=== PATIENT | female | born 1965 | race Two or more races ===

== ENCOUNTER 2025-04-29 18:29 | Emergency (ER) | payer BC, SELFPAY ==
--- OUTSIDE RECORDS SUMMARY | 2025-04-24 13:20 | XMS_ITS | Encounter Summary ---
Author Organization [facility] Address [address] [place] [address] Care Team Providers Care Environmental Services Tech Name Role Phone Linda Tinsley Primary Care Provider [phone] Reason for Visit * Reason Comments Follow Up FMLA Neck Pain Shoulder Pain Encounter Details Date Type Department Care Team (Late st Contact Info) Description 04/24/2025 1:20 PM EDT Office Visit [facility] [address] [place] [address] Linda Tinsley FNP [address] [place] [address] Social History Tobacco Use Types Packs/Day Years Used Date Smoking Tobacco: Former Cigarettes 0.3 10 0 08/22/1988 - 08/22/1998 Smokeless Tobacco: Never Tobacco Cessation:Counseling Given: Not Answered Alcohol Use Standard Drinks/Week Comments Not Currently 0 (1 standard drink = 0.6 oz pur e alcohol) Social Connections Answer Date Recorded Connectedness 0 04/27/2024 Financial Resource Strain Answer Date R ecorded Do you have trouble paying for medicines? 1 02/12/2025 Stress Answer Date Recorded Stress 0 10/14/2020 Physical Activity Answer Date Recorded Physical Activity 0 10/14/2020 Food Insecurity Answer Date Recorded Within the past 12 months, y ou worried that your food would run out before you got money to buy more. 1 02/12/2025 Transportation Needs Answer Date Record ed Do you have trouble getting transportation to medical appointments? 1 02/12/2025 Housing Stability Answer Date Recorded What is your living situation today? 1 02/12/2025 Safety and Environment Answer Date Mino rded Safety 0 01/29/2021 Utilities Answer Date Recorded Do you have trouble paying y our heating, water or electricity bill? 1 02/12/2025 Employment Answer Date Recorded Are you currently unemployed and looking for a j ob? 1 02/12/2025 Comments No Sex and Gender Information Value Date Recorded Sex Assigned at Female 01/29/2021 4:24 PM PDT Legal Sex Female 10:54 PM PST Gender Identity Female 10/24/2020 12:46 AM PST Sexual Orientation Straight 10/24/2020 12 :46 AM PST COVID-19 Exposure Response Date Recorded In the last 10 days, have yo u been in contact with someone who was confirmed or suspected to have Coronavirus/COVID-19? No / Unsure 04/24/2025 1:48 PM EDT documented as of this encounter Last Filed Vital Signs Vital Sign Reading Time Taken Comments Blood Pressure 123/84 04/24/2025 1:56 PM EDT Pulse 53 04/24/2025 1:56 PM EDT Temperature 36.7 C (98.1 F) 04/24/2025 1:56 PM EDT Respiratory Rate - - Oxygen Saturation 99% 04/24/2025 1:56 PM EDT Inhaled Oxygen Concentration - - Weight 92.1 kg (203 lb) 04/24/2025 1:56 PM EDT Height - - Body Mass Index 29.39 11/02/2023 2:31 PM EDT documented in this encounter Progress Notes * DANIELLE Roth - 04/29/2025 8:24 PM EDTAssociated Problem(s): Chronic pain of both shoulders She presents for FMLA form completion . Form completed: eff 04/23/25 to 05/23/25 pending Orthopedics' evaluation. She plans to self-submit this form (original completed copy returned to pt) . Continue with treatment plan per Orthopedic's recommendations * DANIELLE Roth - 04/24/2025 2:05 PM EDT [facility] Subjective Perla Pelaez is a 59 year old female here for Follow Up (FMLA), Neck Pain, and Shoulder Pain pre press manager assisted with translation for this visit. HPI: She presents for FMLA form completion #Bilateral shoulders pain, f/b [facility] at [facility]/Dr. Moreno Valencia, most recent appt 03/08/25, f/u next week . MRI of both shoulders completed on March 18 2025 (report not available for review) . Patient reports rotator cuff tear of both shoulders and anticipating right shoulder surgery this month pending repeat MRI that is scheduled for 04/25/25. Dr. Valencia notes 03/08/25 MEDICAL DECISION MAKING I have independently reviewed and interpreted all of images associated with her x-rays of her shoulders from an outside facility dated 12/31/2024, and they reveal no evidence of acute bony abnormality, fracture, or dislocation. The joint space is well-preserved and there is no evidence of advanced arthritis, or other bony abnormality. Most notable, on both shoulders, there is rounding on the underside of the acromion that raises concern for occult rotator cuff disease. ASSESSMENT & PLAN Ms. Pelaez is a 59 y.o.-old pyudu-soab-wljfnfkh woman with chronic bilateral shoulder pain and a clinical presentation that is concerning for bilateral degenerative supraspinatus tendon tearing. SHARED DECISION MAKING At today's visit, Ms. Pelaez and I have discussed the details of her x-ray. I am pleased to reportthat she has no evidence of advanced arthritis in her shoulders. Her physical examination reveals considerable weakness. Her weakness raises concern of her having bilateral degenerative rotator cuff tears which would explain her radiographic finding and her physical examination. She and I have discussed her options for treating her shoulder pain and disability. I agree that she may benefit from formal physical therapy and for this reason I have suggested that she may want towork with Weston Henning at [facility] in [place], [place]. Additionally, she is interested in understanding the pathoanatomy of her shoulders. For this reason, I have ordered MRIs of both shoulders. For her convenience, I have suggested getting the MRIs doneat the [facility] facility in [place], [place]. Once they are completed, I have asked her tolet me know so that we can review the images remotely. She understands that the imaging study will offer us some insight as to whether or not there is a structural abnormality in her shoulder, what is injured and what her options may be. I will also give her some time to begin formal physical therapy to see if her functional capacity is improved with conservative approach. Reviewed by Provider: Documentation Reviewed by Provider: Review of Systems Constitutional: Negative for chills, fatigue, fever and unexpected weight change. Respiratory: Negative for shortness of breath. Cardiovascular: Negative for chest pain, palpitations and leg swelling. Genitourinary: Negative for difficulty urinating and dysuria. Musculoskeletal: Positive for arthralgias. Negative for gait problem. Psychiatric/Behavioral: Negative for agitation and confusion. Current Outpatient Medications Medication Sig Dispense Refill naproxen (NAPROSYN) 500 mg tablet Take 1 Tablet by mouth 2 (two) times daily with a meal. 30 Tablet0 fluticasone propion-salmeteroL (AIRDUO RESPICLICK) 113-14 mcg/actuation aepb Inhale 1 Puff into thelungs 2 (two) times daily inhale 1 puff by inhalation route 2 times every day approximately 12 hours apart at the same time each day 1 Each 2 albuterol HFA (VENTOLIN HFA) 90 mcg/actuation inhaler Inhale 2 Puffs into the lungs every 4 (four) hours as needed for shortness of breath or wheezing 18 g 1 fluticasone propionate (FLONASE) 50 mcg/actuation nasal spray Place 2 Sprays in both nostrils once daily topiramate (TOPAMAX) 25 mg tablet TAKE 1 TABLET BY MOUTH X 1 WEEK THEN INCREASE TO TWICE A DAY carboxymethylcellulose-glycern (REFRESH OPTIVE) 1-0.9 % drpg As directed DULoxetine (CYMBALTA) [address] capsule Take 120 mg by mouth once daily TAKE 1 CAPSULE BY MOUTH EVERY DAY RESTASIS 0.05 % ophthalmic emulsion Place 1 Drop into both eyes 1 to 2 (one to two) times daily No current facility-administered medications for this visit. Objective BP 123/84 (Right Arm, Sitting, Large Adult) Pulse 53 Temp 98.1 ??F (36.7 ??C) Wt 203 lb (92.1kg) SpO2 99% BMI 29.39 kg/m?? OB Status Hysterectomy Smoking Status Former BSA 2.13 m?? Pain Sc 8/10 (Loc: Neck) Physical Exam Vitals reviewed. Constitutional: General: She is not in acute distress. Appearance: She is not ill-appearing or diaphoretic. Pulmonary: Effort: Pulmonary effort is normal. Musculoskeletal: General: No swelling or deformity. Neurological: Mental Status: She is alert and oriented to person, place, and time. Gait: Gait normal. Assessment and Plan 1. Chronic pain of both shoulders (Primary) Overview: #Bilateral shoulders pain, f/b [facility] at [facility]/Dr. Moreno Valencia, most recent appt 03/08/25, f/u next week . MRI of both shoulders completed on March 18 2025 (report not available for review) . Patient reports rotator cuff tear of both shoulders and anticipating right shoulder surgery this month pending repeat MRI that is scheduled for 04/25/25. Dr. Valencia notes 03/08/25 MEDICAL DECISION MAKING I have independently reviewed and interpreted all of images associated with her x-rays of her shoulders from an outside facility dated 12/31/2024, and they reveal no evidence of acute bony abnormality, fracture, or dislocation. The joint space is well-preserved and there is no evidence of advanced arthritis, or other bony abnormality. Most notable, on both shoulders, there is rounding on the underside of the acromion that raises concern for occult rotator cuff disease. ASSESSMENT & PLAN Ms. Pelaez is a 59 y.o.-old nxhph-vzua-kdibcfrq woman with chronic bilateral shoulder pain and a clinical presentation that is concerning for bilateral degenerative supraspinatus tendon tearing. SHARED DECISION MAKING At today's visit, Ms. Pelaez and I have discussed the details of her x-ray. I am pleased to reportthat she has no evidence of advanced arthritis in her shoulders. Her physical examination reveals considerable weakness. Her weakness raises concern of her having bilateral degenerative rotator cuff tears which would explain her radiographic finding and her physical examination. She and I have discussed her options for treating her shoulder pain and disability. I agree that she may benefit from formal physical therapy and for this reason I have suggested that she may want towork with Weston Henning at [facility] in [place], [place]. Additionally, she is interested in understanding the pathoanatomy of her shoulders. For this reason, I have ordered MRIs of both shoulders. For her convenience, I have suggested getting the MRIs doneat the [facility] in [place], [place]. Once they are completed, I have asked her tolet me know so that we can review the images remotely. She understands that the imaging study will offer us some insight as to whether or not there is a structural abnormality in her shoulder, what is injured and what her options may be. I will also give her some time to begin formal physical therapy to see if her functional capacity is improved with conservative approach. Assessment & Plan: She presents for FMLA form completion . Form completed: eff 04/23/25 to 05/23/25 pending Orthopedics' evaluation. She plans to self-submit this form (original completed copy returned to pt) . Continue with treatment plan per Orthopedic's recommendations Follow-up Instructions Check-out Note: Follow-up in 4 to 6 weeks, or sooner if needed documented in this encounter Plan of Treatment Not on file documented as of this encounter Goals Goal Patient Goal Type Associated Problems Recent Progress Patient-Stated? Author Learn coping skills to manage anxiety using mindfulness and progressive relaxation General On track( 024 3:04 PM PDT) No Ale Pastor LICSW documented as of this encounter Visit Diagnoses Diagnosis Chronic pain of both shoulders- Primary Pain in joint, shoulder region documented in this encounter Additional Health Concerns Assessment Noted Time PHQ-9 Depression Total Score: 13 025 9:49 AM PDT documented as of this encounter Care Teams Environmental Services Tech Relationship Specialty Start Date End Date Linda Tinsley FNP [address] [place] [phone] PCP - General 08/10/22 documented as of this encounter
[2025-04-29 19:17] VITALS: BP 123/66; PULSE 58; RESP 16; TEMP 35.9; O2SAT 99; BMI 21.5
--- NOTE | 2025-04-29 19:22 | ED.GENADULT ---
HPI - General Adult General Chief complaint: General Medical Stated complaint: blood in stool Time Seen by Provider: 04/29/25 23:10 Source: patient Mode of arrival: ambulatory Limitations: other (deafness, ASL) History of Present Illness ED Provider: Dr. Shani Hdez HPI narrative: 59 year old female with history of deafness, uses spanish medical interpreter presenting with dark stools ongoing for the last 3 days or so. Today, noted BRB on the toilet paper and became concerned. Went to the who told her to come to the ED for evaluation. Denies assocaited abdominal pain. Has been taking naproxen every day for the last several weeks for shoulder pain. She is due to have surgery next week for rotator cuff injury. Describes formed, but dark colored stools. Almost black. No bright red blood until today. She does not take iron supplements or bismuth subsalicylate. Denies nausea or vomiting. No urinary complaints. No anticoagulant use. Related Data Allergies Allergy/AdvReac Type Severity Reaction Status Date / Time No Known Allergies Allergy Verified 04/29/25 19:32 Review of Systems Review of Systems: as per HPI, full review of systems performed and negative but for the above mentioned pertinent positives and negatives. [facility] Social History Social History Smoked in Last 30 Days: No Use of substances other than those prescribed or required for medical reasons: No Advance Directives: No Advance Directives Information Provided: Yes Do you have a plan to hurt others: No Plan Patient : No Physical Exam ED Exam Exam: GENERAL: Well-Appearing, conversant, no acute distress. SKIN: Normal skin color for ethnicity, warm, dry, no rashes noted. HEENT:? Normocephalic, atraumatic, no stridor, posterior oropharynx nonerythematous, dentition intact, EOMI. NECK: Soft, supple, full ROM, midline structures nontender, no step-offs, no deformities, no lymphadenopathy. CHEST: Heart regular rate and rhythm, no murmurs, symmetric chest rise and fall. PULMONARY: Clear to auscultation bilaterally, no labored breathing, no wheezes/rhales/rhonchi. ABDOMINAL: Soft, nondistended, nontender, quiet bowel sounds in all quadrants. : Deferred. MUSCULOSKELETAL: Normal tone, full range of motion, no deformities, no peripheral edema. NEURO: Alert and oriented x3, CN II through XII intact, equal strength and sensation bilateral upper and lower extremities, no focal neurologic deficits.? PSYCHIATRIC: Normal affect, fluid speech, good eye contact and appropriate demeanor. Vital Signs: Vital Signs - 24 hr 04/29/25 19:17 Temperature 96.6 F L Pulse Rate 58 Respiratory Rate 16 Blood Pressure 123/66 Pulse Oximetry 99 Oxygen Delivery Method Room Air BMI result Body Mass Index 21.5 Course Course Course Narrative: Rapid medical examination performed in triage by Carmen Allen PA-C. Patient is a 59 year old assigned female at presenting to the emergency department with blood in her stool. Patient states that she is taking naproxen for shoulder pain. Patient has had some dark stools. Detailed physical exam and review of systems are deferred to the test car driver. Labs ordered. Patient placed back in the waiting room pending room availability and results. Medical Decision Making Medical Decision Making [facility] Narrative: Patient presents today with a chief complaint of possible GI bleed. Differential diagnosis includes rectal bleeding from sources such as a fissure, hemorrhoid, lower GI bleed, diverticulitis, upper GI bleeding, peptic ulcer disease, perforation, esophageal bleed, among many others. Broad-based work-up was initiated based on the patient's presentation. Bloodwork shows no significant anemia. No abdominal pain on exam or history. Suspect PUD or gastritis due to NSAID use. Extensive discussion about avoid NSAIDs, PPI use and follow up with PCP and her orthopedic surgeon who is repairing her rotator cuff injury next week. Using shared decision making, plan for discharge home to follow-up with primary care and/or specialist.? Patient understands and agrees with plan for discharge.? Discharged home in stable condition. Differential Diagnosis Differential Diagnoses: The differential diagnosis associated with the presentation includes (as above) Admission/Observation Consideration of admission/observation: Escalation of care including admission/observation considered Lab Data [facility] Lab Attestation statement: I reviewed the patient's lab results. 04/29/25 19:36 04/29/25 19:36 Labs: Lab Results 04/29/25 Range/Units 19:36 WBC 7.4 (4.8-10.8) X10*3/uL RBC 4.61 (4.20-5.50) X10*6/uL Hgb 13.4 (12.0-16.0) g/dl Hct 38.8 (37.0-47.0) % MCV 84.2 (80.0-98.0) fL MCH 29.1 (27.0-33.0) pg MCHC 34.5 (31.0-35.0) g/dl RDW 12.8 (11.0-16.0) % Plt Count 252 (160-400) X10*3/uL MPV 9.2 L (9.4-12.3) fL Immature Gran % (Auto) 0.3 (0.0-0.4) % Neut % (Auto) 65.9 (45-73) % Lymph % (Auto) 23.5 (20-40) % [place] % (Auto) 7.6 (2-11) % Eos % (Auto) 2.3 (0-4) % Baso % (Auto) 0.4 (0-2) % Lymph # (Auto) 1.7 (1.2-4.9) X10*3/uL [place] # (Auto) 0.6 (0.1-1.2) X10*3/uL Eos # (Auto) 0.2 (0.0-0.4) X10*3/uL Baso # (Auto) 0.0 (0.0-0.2) X10*3/uL Abs Immat Gran (auto) 0.02 (0.00-0.03) X10*3/uL Absolute Neuts (auto) 4.8 (2.0-8.3) x10*3/uL Absolute Nucleated RBC 0.000 (0.0-0.012) X10*3/uL Nucleated RBC % (auto) 0.0 (0.0-0.2) /100WBC PT 10.9 (10.9-12.4) SEC INR 1.0 (0.9-1.1) Sodium 145 (135-145) mmol/L Potassium 4.1 (3.3-5.1) mmol/L Chloride 113 H (96-108) mmol/L Carbon Dioxide 23 (22-29) mmol/L Anion Gap 13 (12-20) BUN 15 (9-16) mg/dL Creatinine 0.89 (0.5-1.4) mg/dL Estim Creat Clear Calc 74.0 Estimated GFR > 60 Random Glucose 99 (60-115) mg/dL Calcium 9.2 (8.4-10.2) mg/dL Total Bilirubin 0.3 (0.0-1.0) mg/dL AST 30 (5-31) U/L ALT 36 H (0-31) U/L Alkaline Phosphatase 93 (39-117) U/L Total Protein 6.9 (6.5-8.0) g/dL Albumin 4.5 (3.5-5.0) g/dL Prescription Management I considered prescription management with: Pain Medication and Other (PPI) Chronic Conditions Patient?s care impacted by: Other (osteoarthritis) Social Determinants Patient?s care significantly limited by Social Determinants of Health including: Other Social Determinant of Health Discharge Plan Discharge Clinical Impression: Acute upper GI bleeding, GI bleed due to NSAIDs Patient Disposition: Home, Self-Care Instructions: Gastrointestinal Bleeding (ED) Additional Instructions: Avoid NSAIDs until you speak with your primary care doctor. You can attempt to use antacids such as omeprazole, famotidine or even just Tums to help with abdominal pain and acid production which can worsen bleeding. Return to the ER with any new or worsening symptoms including: Worsening abdominal pain, fevers greater than 100?, worsening bleeding, passing out, chest pain, difficulty breathing, any new symptom that concerns you. Call 911 with any medical emergency. Interventions: ED Discharge Assessment Last Done: 04/30/25 00:55 Discharge Date/Time: 04/30/25 00:52 Print Language: Libyan Sign Language
[2025-04-29 19:40] LABS: MANUAL DIFF FLAG NO
[2025-04-29 19:41] LABS: Hematocrit 38.8 % (37.0-47.0); Hemoglobin 13.4 g/dl (12.0-16.0); Imm Gran Abs Auto 0.02 X10*3/uL (0.00-0.03); Imm Gran Pct Auto 0.3 % (0.0-0.4); Lymphocytes Absolute Auto 1.7 X10*3/uL (1.2-4.9); Mean Corpuscular HGB Conc 34.5 g/dl (31.0-35.0); Mean Corpuscular Hemoglobin 29.1 pg (27.0-33.0); Mean Corpuscular Volume 84.2 fL (80.0-98.0); NRBC Abs Auto 0.000 X10*3/uL (0.0-0.012); NRBC Pct Auto 0.0 /100WBC (0.0-0.2); Platelet Count 252 X10*3/uL (160-400); Red Blood Count 4.61 X10*6/uL (4.20-5.50); White Blood Count 7.4 X10*3/uL (4.8-10.8)
[2025-04-29 19:46] LABS: INTERNATIONAL NORM RATIO 1.0 (0.9-1.1); Prothrombin Time 10.9 SEC (10.9-12.4)
[2025-04-29 19:56] LABS: Alanine Aminotransferase 36 U/L (0-31); Albumin Level 4.5 g/dL (3.5-5.0); Alkaline Phosphatase 93 U/L (39-117); Anion Gap 13 (12-20); Aspartate Amino Transferase 30 U/L (5-31); Blood Urea Nitrogen 15 mg/dL (9-16); Calcium 9.2 mg/dL (8.4-10.2); Carbon Dioxide 23 mmol/L (22-29); Chloride 113 mmol/L (96-108); Creatinine Clr Calc Pharmacy 74.0; Estimated Glomerular Filt Rate > 60; Potassium 4.1 mmol/L (3.3-5.1); Sodium 145 mmol/L (135-145); Total Protein 6.9 g/dL (6.5-8.0)
--- NOTE | 2025-04-29 23:52 | PC.NURSE ---
RN and registration attempting to secure field observer for communication purposes with the patient. Due to unsuccessful attempts and prolonged wait time this RN called the deaf/hearing impaired emergency number to request an oncall field observer to assist with the patient's visit. MD Hdez aware
--- OUTSIDE RECORDS SUMMARY | 2025-04-30 00:23 | XMS_ITS | Clinical Summary ---
Author Organization [facility] Address [address] [place] [phone] Phone Care Team Providers Care Commercial Maintenance Technician Name Role Phone Kamilla Romero NP Primary Care Provide r Allergies Active Allergy Reactions Criticality Noted Date Comments Nitrofurantoin Monohyd/M-Cryst Unknown 10/22 Medications gabapentin (NEURONTIN) 300 MG capsule Take 300 mg by mouth 3 (three) times a day. Active DULoxetine (CYMBALTA) 60 MG capsule Take 60 mg by mouth daily. Active baclofen (LIORESAL) 10 MG tablet Take 10 mg by mouth 3 (three) times a day. Active fluticasone-isai meterol (ADVAIR DISKUS) 100-50 mcg/dose DISKUS Inhale 100 mcg/actuation of fluticasone into the lungs 2 (two) times a day. Active Active Problems Problem Noted Date Diagnosed Date Allergic rhinitis 10/30/2013 Overview (10/11/2014): Allergic rhinitis Dysfunction of eustachian tube 10/30/2013 Overview (10/11/2014): Dysfunction of eustachian tube Family History Medical History Relation Comments Heart disease Father Alzheimer's disease Maternal Grandmother Diabetes mellitus Maternal Grandmother Heart disease Mother Osteoarthritis Mother Hypothyroidism Sister Anesthesia problems Neg Hx Bleeding Disorder Neg Hx Relation Status Comments Father Maternal Grandmother Mother Sister Social History Tobacco Use Types Packs/Day Years Used Date Smoking Tobacco: Never Smokeless Tobacco: Never Alcohol Use Standard Drinks/Week Comments Yes 0 (1 standard drink = 0.6 oz pur e alcohol) Education Answer Date Recorded Are you interested in more education? Not on mirian e 12/17/2022 Are you concerned about learning? Not on file 12/17/2022 No 12/17/2022 No 12/17/2022 Digital Access Answer Date Recorded No 01/17/2023 No 01/17/2023 No 01/17/2023 Reliable internet access at home? Not on file 01/17/2023 Device with a working camera? Not on file Comments Unknown Sex and Gender Information Value Date Recorded Sex Assigned at Not on file Legal Sex Female 2:21 PM EST Gender Identity Not on file Sexual Orientation Not on file Last Filed Vital Signs Vital Sign Reading Time Taken Comments Blood Pressure 100/78 07/01/2015 4:49 PM EST Pulse 60 07/01/2015 4:49 PM EST Temperature 36.7 C (98.1 F) 09/20/2014 11:50 AM EST Respiratory Rate - - Oxygen Saturation 98% 09/20/2014 11:50 AM EST Inhaled Oxygen Concentration - - Weight 92.1 kg (203 lb) 06/26/2020 9:10 AM EST Height 175.3 cm (5' 9 ) 06/26/2020 9:10 AM EST Body Mass Index 29.98 06/26/2020 9:10 AM EST Plan of Treatment Health Maintenance Due Date Last Done Comments LIPID PANEL 1966 DEPRESSION SCREENING 1978 HEPATITIS C SCREENING 1984 HIV ONE-TIME SCREENING (18-6 5 YEARS) 1984 PAP SMEAR 1987 SMOKING STATUS SCREENING (On ce After 26 Yrs) 1992 MAMMOGRAM 2006 COLOGUARD 2011 COLONOSCOPY 2011 COLORECTAL CANCER SCREENING 2011 FIT TEST 2011 FOBT 2011 SIGMOIDOSCOPY 2011 VIRTUAL COLONOSCOPY 2011 PNEUMOCOCCAL VACCINES (50+ years) (1 of 1 - PCV) 2016 ZOSTER VACCINES (1 of 2) 2016 Adult Td,Tdap Booster 02/26/2025 02/26/2015 INFLUENZA VACCINE (#1) 2025 COVID-19 VACCINE (3 - 2024-2 6 season) 2025 10/11/2020, 09/20/2020 HEPATITIS A VACCINES Aged Out No long er eligible based on patient's age to complete this topic HIB VACCINES Aged Out No longer eligi ble based on patient's age to complete this topic MENINGOCOCCAL VACCINES (ACWY) Aged Out No longer eligible based on patient's age to complete this topic MENINGOCOCCAL VACCINES (B) Aged Out N o longer eligible based on patient's age to complete this topic Medical Devices Not on file Insurance [facility] ACO [facility]CO [phone] [place] [phone] [place] [phone] [place] [address] ACO Care Teams Commercial Maintenance Technician Relationship Specialty Start Date End [place] [address] PCP - General Family Medicine 07/18/18 Additional Source Comments The information contained in this document represents components of the legal health record. It is not the complete legal health record.[facility]
--- OUTSIDE RECORDS SUMMARY | 2025-04-30 00:23 | XMS_ITS | Clinical Summary ---
Author Organization [facility] Address [address] [place] [address] Care Team Providers Care Compliance Review Officer Name Role Phone Linda Tinsley MICROFILM CLERK Primary Care Provider [phone] Source Comments PLEASE NOTE, if this patient is a minor, it may be UNLAWFUL to discuss sensitive information that is contained in these records (such as FAMILY PLANNING, MENTAL HEALTH or SUBSTANCE ABUSE) with the minor patient's parent or other person without the patient's specific authorization.[facility] Allergies Active Allergy Reactions Criticality Noted Date Comments Macrolide Antibiotics Diarrhea Low 11/09/2018 Nitrofurantoin High 03/07/2016 Reaction: Abdominal Pain Nitrofurantoin Macrocrystalline High 03/07/2016 Reaction: Abdominal Pain Medications RESTASIS 0.05 % ophthalmic emulsion Place 1 Drop into both eyes 1 to 2 (one to two) times daily 12/11/19 21 Active DULoxetine (CYMBALTA) [address] capsule Take 120 mg by mouth once daily TAKE 1 CAPSULE BY MOUTH EVERY DAY 10/16/19 21 Active carboxymethylcel lulose-glycern (REFRESH OPTIVE) 1-0.9 % drpg As directed Activ e topiramate (TOPAMAX) 25 mg tablet TAKE 1 TABLET BY MOUTH X 1 WEEK THEN INCREASE TO TWICE A DAY 04/07/20 21 Active fluticasone propionate (FLONASE) 50 mcg/actuation nasal spray Place 2 Sprays in both nostrils once daily Active albuterol HFA (VENTOLIN HFA) 90 mcg/actuation inhalerIndicatio ns:Influenza A,Moderate persistent asthma with acute exacerbation ([facility]) Inhale 2 Puffs into the lungs every 4 (four) hours as needed for shortness of breath or wheezing 18 g 1 10/17/19 24 Active fluticasone propion-salmeter oL (AIRDUO RESPICLICK) 113-14 mcg/actuation aepbIndications: Moderate persistent asthma, unspecified whether complicated ([facility]) Inhale 1 Puff into the lungs 2 (two) times daily inhale 1 puff by inhalation route 2 times every day approximately 12 hours apart at the same time each day 1 Each 2 03/28/20 24 Active naproxen (NAPROSYN) 500 mg tablet Take 1 Tablet by mouth 2 (two) times daily with a meal. 30 Tablet 04/23/20 25 Active celecoxib (CELEBREX) 200 mg capsule 01/15/20 21 025 Discontin ued(Thera py completed /Not needed) Active Problems Problem Noted Date Diagnosed Date Chronic pain of both shoulders 04/23/2025 Overview (04/29/2025): #Bilateral shoulders pain, f/b [facility] at [facility]/Dr. Moreno Valencia, most recent appt 03/08/25, f/u [...] PLAN Ms. Pelaez is a 59 y.o.-old rkpor-oawd-jvslauxt woman with chronic bilateral shoulder pain and a clinical presentation that is concerning for bilateral degenerative supraspinatus tendon tearing. SHARED DECISION MAKING At today's visit, Ms. Pelaez and I have discussed the details of her x-ray. I am pleased to report that she has no evidence of advanced arthritis [...] I have suggested that she may want to work with Weston Henning at [facility] in [place], [place]. Additionally, she is interested in understanding the pathoanatomy of her shoulders. For this reason, I have ordered MRIs of both shoulders. For her convenience, I have suggested getting the MRIs done at the [facility] in [place], [place]. Once they are completed, I have asked her to let me know so that we can review [...] is improved with conservative approach. Assessment & Plan (04/29/2025 8:24 PM EDT): She presents for FMLA form completion . Form completed: eff 04/23/25 to 05/23/25 pending Orthopedics' evaluation. She plans to self-submit this form (original completed copy returned to pt) . Continue with treatment plan per Orthopedic's recommendations Complex tear of lateral meni scus of right knee as current injury 05/08/2021 Overview (11/03/2021): 05/08/21- Most recent Xray - No fracture. Mild lateral patellar tilt. The joint spaces are preserved. Tiny marginal osteophytes in the medial tibiofemoral compartment and patellofemoral compartment. Enthesopathic change of the tibial tuberosity. Moderate effusion. Patient given RX for physical Therapy , however has not started yet due to language barrier Will try and obtain MRI for soft tissue pathology - patient encouraged to start PT 09/2021 [facility] MRI w/o contrast: medial and lateral meniscal tearing and mild degen cartilage changes Reactive disorder 05/08/2021 Overview (05/08/2021): Patient appears to be having marked elevation of anxiety as well as depression (labile crying during exam) Patient denies any suicidal ideationicidal Or homicidal ideation at this time At this time will start CBT with Patient to continue with Cymbalta 120mg (titrated up recently by outside provider), ?may need additional agents ?may need to assess after CBT is initiated Tinea unguium 02/24/2021 Overview (05/08/2021): 02/24/21 R grt toe, 6mm to 4mm discolouration, thickening, +debris under d1/d4/d5 nails. Has tried mult OTC creams, and from [employer], not sure of names Would like to proceed to pill form - understands 3mo course, and risk of liver stress 02/26/21 review: CMP WNL - ok to start terbinafine. To recheck in 1 mo, then ?continue meds. 05/08/21 - slight improvement - will resume course for 3rd month - will trend LFTs Preventative health care 01/29/2021 Overview (11/12/2023): . Mammo - no family hx, last was ~20 years ago, placed referral, pt to schedule. . Pap test - usually - hysterectomy in 2008 adenomyosis . CRC screening - Previous FIT test in 2020 was negative. Discussed, pt agrees to referral for cscope. . Hep C and HIV screenings: ordered. . Imm: Due for flu, PCV, covid booster => indications/r/b/SEs discussed with patient, pt declined all vaccines at this visit. Assessment & Plan (11/12/2023 4:50 PM EDT): . Discussed lifestyle modifications: healthy diet and exercise regularly. . Reviewed routine eye exam and dental cleaning every 6 mos Primary osteoarthritis involving multiple joints 12/18/2020 Overview (12/18/2020): 09/2020 following [facility] rheum Fitz, on meloxicam Fibromyalgia 11/19/2018 Overview (11/03/2021): Long standing well compensated fibromyalgia. Curiously she has been managed with primarily adjunct and centrally acting pain medications. (gabapentin and cymbalta as well as muscle relaxers.) Uses CBD as well which is modestly helpful. Addition of meloxicam was useful in mitigating the pain. Suggesting that there is a clear OA and degenerative component. Unfortunately this suggests that the issues will likely only worsen slowly over time. I urged her to try and take a higher 15mg dose and see if she will get a dose effect. Thus far she has not opted for this option. 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 It simply may be unrealistic to expect her to change significantly from the current trajectory even if that is largely a flat line. This does not fully take into account the possibility of future medications or treatment options that are not ready yet. Last Assessment & Plan: We discussed the side effect of what was perceived to be meloxicam(dry mouth). I suspect that this was not from the NSAID. Nonetheless we discussed trying an alternative, in this case the naprosyn which will have to be taken BID. We shall also provide a procholinergic medication which could counteract some of the xerostomia symptoms. Given the limitation of communicating with the wheel borer we will loop back in a few weeks with a televisit. CALL THE [phone] Language barrier affecting health care 9 Congenital deafness 03/07/2016 Assessment & Plan (02/12/2025 4:31 PM EDT): She has a 9 month old dog/animal support whom will be trained to assist her with environmental sound for safety awareness. Letter of accommodation for [facility] provided per her request Cervico-occipital neuralgia of right side 2014 Overview (11/12/2023): DANIELLE Mckinney-C12/03/2022 : F/b [facility] - sees Q3-4mo Brain MRI 02/2021 - no significant abnormalities Preventative medications: cymbalta 120mg daily + topiramate 50mg BID Abortive medications: aleve nikolai Assessment & Plan (11/12/2023 3:56 PM EDT): Continue with treatment plan per pain clinic at [facility] and continue to follow up per their recommendations. Assessment & Plan (09/21/2023 11:36 PM EST): F/b pain clinic at [facility]/ Dr. Vargas, pt requesting re-referral (most recent visit was Fall 2022 per pt). Allergic rhinitis 10/30/2013 Overview (12/18/2020): Allergic rhinitis Chronic low back pain Asthma Resolved Problems Problem Noted Date Diagnosed Date Resolved Date Sore throat 10/17/2023 11/16/2023 Dry skin 02/24/2021 11/03/2021 Bilateral dry eyes 09/17/2019 Overview (12/18/2020): Last Assessment & Plan: Still with burning but overall, improved since starting Restasis Continue with Restasis 1gtt BID both eyes and artificial tears as needed both eyes during the day Follow up 6 months Dysfunction of eustachian tube 10/30/2013 11/03/2021 Overview (12/18/2020): Dysfunction of eustachian tube Encounters Date Type Department Care Team Description 04/24/2025 1:20 PM EDT Office Visit [facility] Primary Care [address] [place] [phone] Linda Tinsley FNP 04/24/2025 Travel 04/23/2025 9:30 AM EDT Office Visit [facility] Primary Care [address] [place] [phone] Robyn Shaw FNP-C 04/23/2025 Travel 04/22/2025 Travel 02/12/2025 2:30 PM EDT Office Visit [facility] Primary Care [address] [place] [phone] Linda Tinsley FNP from Last 3 Months Immunizations Immunization Administration Dates Next Due PFIZER COVID VACCINE, PURPLE CAP, 12+ 10/11/2020 ,09/20/2020 TDAP 02/24/2021 Family History Medical History Relation Name Comments Allergies Brother Cardiovascular disease Father Heart attack Father Parkinson's disease Maternal Grandfather Diabetes Mellitus II Maternal Grandmother Stroke Mother Cause of Cardiovascular disease Other 1 Family h/o JEAN -father Stroke Other 2 Family h/o JEAN 10/31/2015 - mother Relation Name Status Comments Brother Father Maternal Grandfather Maternal Grandmother Mother (Age 76) Other 1 Family h/o Other 2 Family h/o Social History Tobacco Use Types Packs/Day Years [...] No / Unsure 04/24/2025 1:48 PM EDT Last Filed Vital Signs Vital Sign Reading Time Taken Comments Blood Pressure 123/84 04/24/2025 1:56 PM EDT Pulse 53 04/24/2025 1:56 PM EDT Temperature 36.7 C (98.1 F) 04/24/2025 1:56 PM EDT Respiratory Rate 18 02/12/2025 2:27 PM EDT Oxygen Saturation 99% 04/24/2025 1:56 PM EDT Inhaled Oxygen Concentration - - Weight 92.1 kg (203 lb) 04/24/2025 1:56 PM EDT Height 177 cm (5' 9.69 ) 11/02/2023 2:31 PM EDT Body Mass Index 29.39 11/02/2023 2:31 PM EDT Plan of Treatment Health Maintenance Due Date Last Done Comments Imm-Hepatitis B (1 of 3 - 19+ 3-dose series) 1985 Imm-Pneumococcal 50+ (1 of 2 - PCV) 1985 Breast Cancer Screening (Mammogram) 2006 CT Colonography 2011 Colonoscopy 2011 Fecal DNA 2011 Flexible Sigmoidoscopy 2011 Colorectal Cancer Screening 02/26/2022 FIT/gFOBT 02/26/2022 02/26/2021 Annual Wellness (Adult): Indicated (All Coverage) 11/01/2024 11/02/2023, 01/29/2021 Qtt-GCVMA-51 ( season) 2025 10/11/2020, 09/20/2020 Depression Monitoring 07/23/2025 04/23/2025 , 02/12/2025, 11/02/2023, Additional history exists Imm-Influenza (#1) 2026 Postponed from 04/22/2025 (Patient postponement) Anxiety Screening 04/23/2026 04/23/2025 Hypertension Screening (#1) 04/24/2026 Tobacco Screening 04/24/2026 04/24/2025 Imm-Zoster, Recombinant (1 of 2) 2026 Postponed from 2016 (Not appropriate at this time) Diabetes Screening 11/01/2026 11/02/2023, 0 11/02/2023, 09/29/2021, Additional history exists Lipid Screening 11/01/2028 11/02/2023, 02/15/2019 Imm-DTaP/Tdap/Td (2 - Td or Tdap) 02/24/2031 02/24/2021 HIV Screening Completed 11/02/2023, 07/07/2022 Hepatitis C Screening Completed 11/02/2023 Alcohol and Drug Screen Completed 04/23/20, 02/12/2025, 03/28/2024, Additional history exists Goals Goal Patient Goal Type Associated Problems Recent Progress Patient-Stated? Author Learn coping skills to manage anxiety using mindfulness and progressive relaxation General On track( 024 3:04 PM PDT) No Ale Pastor, MELANIE Procedures Procedure Name Priority Date/Time Associated Diagnosis Comments OTHER ORDERS SCANNED DOCUMENT 04/23/2025 3:00 AM EDT REFERRAL SCANNED DOCUMENT 02/05/2025 3:00 AM EDT HEP C AB HIV 1/2 SCRN DIAGNOSTIC PANEL RFX Routine 11/02/2023 3:23 PM EDT Preventative health care COMPREHENSIVE METABOLIC PANEL Routine 11/02/2023 3:23 PM EDT Preventative health care LIPIDS W RFLX TO DIRECT LDL Routine 11/02/2023 3:23 PM EDT Screening for hyperlipidemia FECAL GLOBIN BY IMMUNOCHEMISTRY (FIT) Routine 02/26/2021 10:42 AM EDT Screening for colorectal cancer from Last 3 Months or Most Recently Relevant to Health Maintenance Results * OTHER ORDERS SCANNED DOCUMENT (04/23/2025 3:00 AM EDT) 04/23/2025 3:[id number] [facility] [employer] SCAN OTHER ORDERS Final Result * REFERRAL SCANNED DOCUMENT (02/05/2025 3:00 AM EDT) 02/05/2025 3:00 AM EDT us Linda Tinsley MICROFILM CLERK SCAN REFERRAL Final Result * HEP C AB HIV 1/2 SCRN DIAGNOSTIC PANEL RFX (11/02/2023 3:23 PM EDT) HEPATITIS C ANTIBODY NON-REACT KIT NON-REACT KIT 11/03/2023 7:34 AM EDT [employer] HIV AG/AB, 4TH GEN NON-REACT KIT NON-REACT KIT 11/03/2023 7:17 AM EDT [employer] Blood Blood / Unknown 11/02/2023 3 :23 PM EDT 11/03/2023 4:23 AM EDT Narrative [facility] - 11/03/2023 8:14 AM EDT . HCV antibody was non-reactive. There is no laboratory evidence of HCV infection. . In most cases, no further action is required. However, if recent HCV exposure is suspected, a test for HCV RNA (test code 63426) is suggested. . HIV-1 antigen and HIV-1/HIV-2 antibodies were not detected. There is no laboratory evidence of HIV infection. . PLEASE NOTE: This information has been disclosed to you from records whose confidentiality may be protected by state law. If your state requires such protection, then the state law prohibits you from making any further disclosure of the information without the specific written consent of the person to whom it pertains, or as otherwise permitted by law. A general authorization for the release of medical or other information is NOT sufficient for this purpose. . For additional information please refer to http://Leosphere.Sparkle.cs.Amlogic/faq/QQW195 (This link is being provided for informational/ educational purposes only.) . . The performance of this assay has not been clinically validated in patients less than 2 years old. . For additional information, please refer to http://education.[employer]Source.Amlogic/faq/BAV601 (This link is being provided for informational/ educational purposes only.) us Linda Tinsley MICROFILM CLERK LAB - BLOOD DRAW Final Result [employer] [address] [address], [employer] [facility] [address] [place] [address] * (ABNORMAL) LIPIDS W RFLX TO DIRECT LDL (11/02/2023 3:23 PM EDT) [facility] Signature CHOLESTEROL, TOTAL 222(H) <200 mg/dL 11/03/2023 5:59 AM EDT [employer] [facility] HDL CHOLESTEROL 65 > OR = 50 mg/dL 11/03/2023 5:59 AM EDT [employer] [facility] TRIGLYCERIDES 142 <150 mg/dL 11/03/2023 5:59 AM EDT [employer] [facility] LDL-CHOLESTEROL 132(H) mg/dL (calc) 11/03/2023 5:59 AM EDT [employer] [facility] CHOL/HDLC RATIO 3.4 <5.0 (calc) 11/03/2023 5:59 AM EDT [employer] [facility] NON-HDL CHOLESTEROL 157(H) <130 mg/dL (calc) 11/03/2023 5:59 AM EDT [employer] [facility] Blood Blood / Unknown 11/02/2023 3 :23 PM EDT 11/03/2023 3:38 AM EDT Narrative [employer] - 11/03/2023 8:14 AM EDT Reference range: <100 . Desirable range <100 mg/dL for primary prevention; <70 mg/dL for patients with CHD or diabetic patients with > or = 2 CHD risk factors. . LDL-C is now calculated using the Fantasma calculation, which is a validated novel method providing better accuracy than the Friedewald equation in the estimation of LDL-C. Kaushik STROUD et al. JULISA. 2013;310(19): 5013-9457 (http://education.HealthSource.Amlogic/faq/OZQ144) For patients with diabetes plus 1 major ASCVD risk factor, treating to a non-HDL-C goal of <100 mg/dL (LDL-C of <70 mg/dL) is considered a therapeutic option. us Mckeon Tinsley [facility] LAB - BLOOD DRAW Final Result [employer] [facility] [address] [address], [employer] [facility] [address] [place] [address] * COMPREHENSIVE METABOLIC PANEL (11/02/2023 3:23 PM EDT) GLUCOSE 95 65 - 99 mg/dL 11/03/2023 5:59 AM EDT [employer] UREA NITROGEN (BUN) 13 7 - 25 mg/dL 11/03/2023 5:59 AM [facility] CREATININE (blood) 0.90 0.50 - 1.03 mg/dL 11/03/2023 5:59 AM EDT [employer] [facility] EGFR 75 > OR = 60 mL/min/1. 73m2 11/03/2023 5:59 AM [facility] BUN/CREATININE RATIO SEE NOTE: 6 - 22 (calc) 11/03/2023 5:59 AM EDT [employer] [facility] SODIUM 138 135 - 146 mmol/L 11/03/2023 5:59 AM [facility]Niche [facility] POTASSIUM 4.0 3.5 - 5.3 mmol/L 11/03/2023 5:59 AM [facility] CHLORIDE 105 98 - 110 mmol/L 11/03/2023 5:59 AM [facility] CARBON DIOXIDE 26 20 - 32 mmol/L 11/03/2023 5:59 AM [facility] CALCIUM 9.8 8.6 - 10.4 mg/dL 11/03/2023 5:59 AM [facility]Niche [facility] PROTEIN, TOTAL 6.8 6.1 - 8.1 g/dL 11/03/2023 5:59 AM [facility]Niche [facility] ALBUMIN 4.7 3.6 - 5.1 g/dL 11/03/2023 5:59 AM [facility]Niche [facility] GLOBULIN 2.1 1.9 - 3.7 g/dL (calc) 11/03/2023 5:59 AM [facility]Niche [facility] ALBUMIN/GLOBULI N RATIO 2.2 1.0 - 2.5 (calc) 11/03/2023 5:59 AM EDT [employer] BILIRUBIN, TOTAL 0.5 0.2 - 1.2 mg/dL 11/03/2023 5:59 AM EDT [employer] ALKALINE PHOSPHATASE 70 37 - 153 U/L 11/03/2023 5:59 AM EDT [employer] [facility] AST 15 10 - 35 U/L 11/03/2023 5:59 AM EDT [employer] ALT 14 6 - 29 U/L 11/03/2023 5:59 AM EDT [employer] [facility] Blood Blood / Unknown 11/02/2023 3 :23 PM EDT 11/03/2023 3:38 AM EDT Narrative [facility] - 11/03/2023 8:14 AM EDT . Fasting reference interval . Not Reported: BUN and Creatinine are within reference range. . Linda Tinsley MICROFILM CLERK LAB - BLOOD DRAW Final Result Performing Organization Address [facility] de Phone Number [facility] [address] [address], [employer] [address] [address] * FECAL GLOBIN BY IMMUNOCHEMISTRY (FIT) (02/26/2021 10:42 AM EDT) FECAL GLOBIN BY IMMUNOCHEMISTRY See Note [employer] [facility] Comment: FECAL GLOBIN BY IMMUNOCHEMISTRY Micro Number: [id number] Test Status: Final Specimen Source: INSURE (TM) FOBT TEST CARD Specimen Quality: Adequate Fecal Globin: Not Detected NO COLLECTION DATE RECEIVED. WE HAVE USED THE DATE THE SPECIMEN WAS RECEIVED BY THIS LABORATORY THE COLLECTION DATE. IF THIS IS INCORRECT, PLEASE CONTACT CLIENT SERVICES. PHONE NUMBER: Stool Stool specimen / Unknown 02/25/2021 4:09 PM EDT Renee Khoury MD, PhD LAB BODY FLUIDS AND STOOLS AMBULATORY Final Result Performing Organization Address [facility]/ZIP Co de Phone Number [employer] [address] [address], [employer] [address] [address] from Last 3 Months or Most Recently Relevant to Health Maintenance Insurance [facility] Care Teams Compliance Review Officer Relationship Specialty Start Date End Date Linda Tinsley FNP [facility] [place] [phone] PCP - General 08/10/22
[2025-04-30 00:55] VITALS: BP 120/82; PULSE 62; RESP 18; TEMP 36.6; O2SAT 99
== END 2025-04-30 00:52 | disposition home or self-care (01) ==
PROVIDERS: Physician Assistant Medical; Emergency Provider Emergency Medicine
DX: K92.2 Gastrointestinal hemorrhage, unspecified (principal); K92.1 Melena; Z79.899 Other long term (current) drug therapy
CPT/HCPCS: 36415; 80053; 85025; 85610; 99283; 99284